=== PATIENT | female | born 1945 | race Two or more races ===

== ENCOUNTER 2024-04-25 09:39 | Emergency (ER) | payer MEDICARE, MEDICAID ==
[~2024-04-25] VITALS: Ht 154.9 cm; Wt 75.7 kg
[2024-04-25 09:54] VITALS: TEMP 97.7
[2024-04-25 10:19] LABS: BASOPHILS % (AUTO) 0.6 % (0.0-2.0); EOSINOPHILS % (AUTO) 4.9 % (1.0-6.0); HEMOGLOBIN 12.2 g/dL (12.0-16.0); LYMPHOCYTES # (AUTO) 1.3 K/uL (1.0-4.8); LYMPHOCYTES % (AUTO) 19.9 % (22.0-44.0); MEAN CORPUSCULAR HEMOGLOBIN 29.6 pg (26.0-34.0); MEAN CORPUSCULAR HGB CONC 32.9 G/dL (31.0-37.0); MEAN CORPUSCULAR VOLUME 90 fL (80-100); MONOCYTES # (AUTO) 0.6 K/uL (0.1-1.0); NEUTROPHILS # (AUTO) 4.3 K/uL (1.8-7.7); NEUTROPHILS % (AUTO) 65.6 % (40.0-70.0); PLATELET COUNT (AUTO) 284 K/uL (150-450); RED BLOOD CELL COUNT(AUTO) 4.11 MIL/uL (4.00-5.20); RED CELL DISTRIBUTION WIDTH 15.2 % (11.5-14.5); WHITE BLOOD COUNT (AUTO) 6.6 K/uL (4.5-11.0)
[2024-04-25 10:28] LABS: CALCIUM, TOTAL 9.3 mg/dL (8.8-10.5); CREATININE 0.92 mg/dL (0.60-1.30); POTASSIUM 3.7 mmol/L (3.5-5.1)
[2024-04-25 10:36] LABS: TROPONIN I-HIGH SENSITIVITY 7 ng/L (<51)
[2024-04-25] MEDS: KETOROLAC TROMETHAMINE 60 MG/2 ML VIAL IM ONE (11:50)
[2024-04-25] MEDS: ACETAMINOPHEN 500 MG TABLET PO ONE (11:50)
[2024-04-25] MEDS ORDERED: IBUP-1506 PO (12:38)
[2024-04-25] MEDS ORDERED: ACET-66 PO (12:38)
[2024-04-25 12:50] VITALS: BP 145/60; PULSE 72; RESP 18
[2024-04-25 17:00] LABS: GLUCOMETER DEV NAME(LOC) ERT.5; GLUCOSE,POINT OF CARE 115 MG/DL (70-110)
== END 2024-04-25 13:09 | disposition home or self-care (01) ==
LOC: EMS 09:39
DX: S16.1XXA Strain of muscle, fascia and tendon at neck level, initial encounter (principal); E11.9 Type 2 diabetes mellitus without complications; I10 Essential (primary) hypertension; R07.89 Other chest pain; X58.XXXA Exposure to other specified factors, initial encounter; Y93.89 Activity, other specified; Y92.89 Other specified places as the place of occurrence of the external cause; Y99.8 Other external cause status
CPT/HCPCS: 99285; 71045; 80048; 82962; 84484; 85025; 36415; 93005; 96372; J1885